=== PATIENT | female | born 1965 | race Caucasian/White ===

== ENCOUNTER 2017-01-21 10:02 | Emergency (ER) | payer MEDICARE ==
--- NOTE | 2017-01-21 10:29 | Emergency Department Record ---
History of Present Illness - General Chief Complaint: Hypertension Stated Complaint: HIGH BLOOD PRESSURE/HEADACHE Time Seen by Provider: 01/21/17 10:21 Source: Patient, RN notes reviewed Mode of Arrival: Ambulatory - History of Present Illness Initial Comments: patient states a headache and seen at [facility] ED and had a cardiac evaluation. She had vomiting yesterday and today only has nausea and PMH CT and irregular heart rate and she took her BP meds today. stopped smoking one year ago. Stopped alcohol 2 years ago. No illegal drugs. PMH hypercholesterol, HTN , CAD,Anxiety and depression PSH hysterectomy No stents, Heart cath 10 years ago. 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 History of DVT in legs both legs. Patient admits to indigestion and no chest pain Onset/Timin -: Days(s) Timing: Awoke with symptoms Description: Nausea, Other History of Same: Yes History of Trauma: No Improves With: Nothing Worsens With: Nothing Associated Symptoms: Denies other symptoms - [place] Coma Scale Eye Response: (4) Open spontaneously - Related Data Home Medications Medication Instructions Recorded Confirmed Last Taken Clopidogrel Bisulfate [Plavix] 75 mg PO DAILY 01/21/17 01/21/17 Unknown Cyclobenzaprine HCl [Flexeril] 10 mg PO TID 01/21/17 01/21/17 Unknown Hydroxyzine Pamoate [Vistaril] 25 mg PO Q6H 01/21/17 01/21/17 Unknown Metoprolol Succinate [Toprol Xl] 25 mg PO DAILY 01/21/17 01/21/17 Unknown Paroxetine HCl [Paxil] 20 mg PO DAILY 01/21/17 01/21/17 Unknown Tramadol HCl [Ultram] 50 mg PO Q6H 01/21/17 01/21/17 Unknown Allergies Allergy/AdvReac Type Severity Reaction Status Date / Time No Known Drug Allergies Allergy Verified 01/06/16 10:34 Travel Screening - Travel/Exposure Within Last 30 Days Have you traveled within the last 30 days?: No Past Medical History - SOCIAL HISTORY Smoking Status: Current every day smoker Alcohol Use: None Drug Use: None - RESPIRATORY Hx Respiratory Disorders: No - CARDIOVASCULAR Hx Cardio Disorders: Yes Hx Abnormal EKG: Yes Hx Heart Attack: Yes Hx Hypertension: Yes Hx Irregular Heartbeat: Yes Comment:: murmur - NEURO Hx Neuro Disorders: Yes Hx Headaches: Yes - GI Hx GI Disorders: No - Hx Genitourinary Disorders: Yes Hx Bladder Problem: Yes - ENDOCRINE Hx Endocrine Disorders: Yes Comment:: hypoglycemia - MUSCULOSKELETAL Hx Musculoskeletal Disorders: Yes Hx Arthritis: Yes - PSYCH Hx Psych Problems: Yes Hx Depression: Yes - HEMATOLOGY/ONCOLOGY Hx Hematology/Oncology Disorders: Yes Hx Cancer: Yes (uterus) Hx Chemotherapy: No Hx Radiation Therapy: No Family Medical History Any Significant Family History?: Yes Hx Depression: Father, Mother, Children Hx Heart Disease: Father, Mother, Children Course Vital Signs 01/21/17 10:05 Temperature 97.8 F Pulse Rate 85 Respiratory 20 Rate Blood Pressure 199/98 Pulse Ox 100 Medical Decision Making - Data Complexity MDM Data: Labs Ordered and/or Reviewed (trop 0.3), X-Ray Ordered and/or Reviewed (CT head negative), EKG Ordered and/or Reviewed (NSR , no acute changes ) - Lab Data Result diagrams: 01/21/17 10:45 01/21/17 10:45 Disposition Clinical Impression: Cephalgia Hypertension Qualifiers: Hypertension type: essential hypertension Qualified Code(s): I10 - Essential ( primary) hypertension Disposition: Home, Self-Care Condition: (1) Good Instructions: Hypertension (ED) Additional Instructions: increase prinzide /hct to two pills a day and see your primary Dr. in 4 days tylenol or motrin for pain Forms: Patient Portal Access Time of Disposition: 13:11 Quality - Quality Measures Quality Measures: N/A - Blood Pressure Screening Does Patient Have Any of the Following: No Blood Pressure Classification: Hypertensive Reading Systolic Measurement: 199 Diastolic Measurement: 98 Screening for High Blood Pressure: Patient Exclusion, Hx of HTN [[id number]]
[2017-01-21] MEDS: AL HYDROX/MAG HYDROX 30ML UD PO ONE (10:49)
[2017-01-21] MEDS: ASPIRIN 81 MG CHEWABLE TABLET PO ONE (10:49)
[2017-01-21] MEDS: CLONIDINE HCL 0.1 MG TABLET PO ONE (10:49)
[2017-01-21 11:10] LABS: BASO % 0.3 % (0-6); EOS % 5.4 % (0-6); GRAN % 58.5 % (47-80); HEMATOCRIT 44.1 % (35.0-47.0); HEMOGLOBIN 14.7 gm/dl (11.6-16.0); MEAN CELL VOLUME 92.1 fl (81-97); MEAN CORPUSCULAR HEMOGLOBIN 30.7 pg (27-33); MEAN CORPUSCULAR HGB CONC 33.3 g/dl (32-36); MEAN PLATELET VOLUME 9.8 fl (7.4-10.4); MONO % 6.8 % (0-9); PLATELET COUNT 199 K/uL (130-400); RED BLOOD COUNT 4.79 M/uL (3.80-5.40); WHITE BLOOD COUNT W/O DIFF 7.6 K/uL (4.2-12.2)
[2017-01-21 11:30] LABS: BLOOD UREA NITROGEN 13 mg/dL (6-20); CKMB 2.1 ng/mL (<3.77); CREATININE 0.7 mg/dL (0.5-0.9); EST GLOMERULAR FILTRATION RATE > 60 mL/min; GLUCOSE,RANDOM 105 mg/dL (74-109)
[2017-01-21 12:36] LABS: INR 0.93; PARTIAL THROMBOPLASTIN TIME 25.8 SECONDS (24.5-39.1)
--- NOTE | 2017-01-24 05:46 | CT SCAN REPORT ---
DATE: 01/21/2017. EXAM: CT OF THE BRAIN. HISTORY: Hypertension. TECHNIQUE: CT of the brain without contrast. COMPARISON: None. FINDINGS: The globes are intact. The paranasal sinuses and mastoid air cells are unremarkable. No displaced or depressed skull fracture. No intra- or extra -axial hemorrhage. CT limited for evaluation of acute infarct. No CT evidence for large or territorial acute infarct. No mass or midline shift. Bilateral basal ganglia calcifications. IMPRESSION: UNREMARKABLE CT OF THE BRAIN. JOB NUMBER: [id number] [facility]
== END 2017-01-21 13:44 | disposition home or self-care (01) ==
LOC: ER 10:02
DX: R51 Headache (principal); R11.0 Nausea; I10 Essential (primary) hypertension; F17.210 Nicotine dependence, cigarettes, uncomplicated; I25.2 Old myocardial infarction
CPT/HCPCS: 70450; 80048; 82553; 83690; 84484; 85025; 85610; 85730; 93005; 93010; 99284